=== PATIENT | female | born 1950 | race Caucasian/White ===

== ENCOUNTER 2017-11-08 13:35 | Emergency (ER) | payer MEDICARE, OTHER, SELFPAY ==
[2017-11-08 13:51] VITALS: BP 146/75; PULSE 81; RESP 18; TEMP 36.9; O2SAT 94; BMI 66.1
--- NOTE | 2017-11-08 14:22 | ED_ITS ---
HPI - Neuro Symptoms/Deficit General Chief Complaint: Neuro Symptoms/Deficit Stated Complaint: NOT FEELING WELL, BLURRY VISION Time Seen by Provider: 11/08/17 14:04 Source: patient Mode of arrival: ambulatory Limitations: no limitations History of Present Illness HPI Narrative: 67-year-old female here for evaluation of generally not feeling well. thinks that she is pale. States that she woke up this morning at [address] States that she forgot to take her blood pressure medicine yesterday. She states that when she woke up she had blurry vision in her right eye. She describes it as just not as sharp as what it normally is. Denies any other symptoms at the time. By the time my evaluation patient symptoms have resolved. She states they resolved as she was being transported back to the room from the waiting room. States she just feels ? unsteady ?on her feet. No weakness. No vertigo. Did take her blood pressure medicine this morning. Patient states that the blurry vision in her right eye was just in her right eye. She states that she covered her right I could see normally out of her left eye. On Anticoagulants: No Related Data Home Medications Medication Instructions Recorded Confirmed Co Q-10 1 cap PO DAILY 11/08/17 11/08/17 Fish Oil 1 cap PO DAILY 11/08/17 11/08/17 Mature Multi-Vitamin 1 tab PO DAILY 11/08/17 11/08/17 atorvastatin 1 tab PO DAILY 11/08/17 11/08/17 cetirizine [Aller-Mary] 1 tab PO DAILY 11/08/17 11/08/17 cholecalciferol (vitamin D3) 5,000 unit PO DAILY 11/08/17 11/08/17 [Vitamin D3] clonidine HCl 1 tab PO BID 11/08/17 11/08/17 furosemide 40 mg PO DAILY 11/08/17 11/08/17 glipizide 5 mg PO BID 11/08/17 11/08/17 levothyroxine 50 mcg PO DAILY 11/08/17 11/08/17 lisinopril 10 mg PO DAILY 11/08/17 11/08/17 metoprolol succinate 100 mg PO DAILY 11/08/17 11/08/17 potassium chloride 10 meq PO DAILY 11/08/17 11/08/17 Allergies Allergy/AdvReac Type Severity Reaction Status Date / Time aspirin AdvReac Verified 11/08/17 13:57 codeine AdvReac Verified 11/08/17 13:57 Review of Systems Constitutional Denies chills, Reports fatigue, Denies fever(s), Denies headache(s), Reports lethargy and Denies weakness Eyes Reports loss of vision (Blurry vision right eye) Comments: Blurry vision right eye Left eye no symptoms ENT Ears, Nose, Mouth, and Throat: Denies dental pain, Denies dysphagia, Denies vertigo, Denies dizziness, Denies dry mouth, Denies facial pain, Denies headache (s), Reports disequilibrium, Denies tinnitus, Denies sinus pressure and Denies sore throat Cardiovascular Denies chest pain, Denies irregular heart rhythm, Reports lightheadedness, Denies palpitations, Denies dyspnea, Denies dyspnea on exertion and Denies orthopnea Respiratory Denies cough, Denies dyspnea, Denies dyspnea on exertion and Denies wheezing Gastrointestinal Gastrointestinal: Denies dysphagia Genitourinary Denies dysuria Musculoskeletal Denies myalgias, Denies arthralgias, Denies numbness and Denies tingling Integumentary/Breasts Denies lesions and Denies rash Neurologic Denies abnormal movements, Denies abnormal speech, Denies behavioral changes, Denies burning sensations, Denies confusion, Denies vertigo, Denies dizziness, Denies headache(s), Denies focal weakness, Reports loss of vision (Blurry vision right eye), Denies memory loss, Denies numbness, Denies radicular pain, Denies sensory deficit, Denies tingling, Denies paresthesias, Reports disequilibrium and Denies weakness Psychiatric Denies behavioral changes, Denies confusion and Denies memory loss Endocrine Reports fatigue and Denies palpitations Hematologic/Lymphatic Denies easy bruising Allergic/Immunologic Denies wheezing PFSH Social History Smoking Status: Never smoker Exam Initial Vital Signs Initial Vital Signs: Vital Signs Temperature 98.5 F 11/08/17 13:51 Pulse Rate 81 11/08/17 13:51 Respiratory Rate 18 11/08/17 13:51 Blood Pressure 146/75 H 11/08/17 13:51 Pulse Oximetry 94 11/08/17 13:51 HENWI Head: normocephalic and atraumatic Ears: external ears normal and TM's normal bilaterally Nose: external nose normal and No nasal discharge Face and sinus: sinuses nontender, face symmetric, no sinus tenderness and No dry mucous membranes Mouth: oral mucosae normal and moist mucous membranes Teeth and gingiva: dentition normal Throat: tonsils normal and uvula midline Eyes EOM: No nystagmus Resp Effort & Inspection: normal respiratory effort, able to speak in complete sentences, no respiratory distress and no use of accessory muscles Auscultation: clear to auscultation bilaterally, no rales, no rhonchi and no wheezes Cardio Rate: regular rate Rhythm: regular rhythm Heart Sounds: no click, no gallops, no murmurs and no rubs Pulses: normal peripheral pulses GI Inspection: non-distended Palpation: soft, no hepatosplenomegaly, No guarding, No pulsatile mass and No tender Auscultation: normal bowel sounds Skin General: no rashes or lesions noted, No jaundice and No petechiae Neuro General: alert, awake, oriented x3 and CN's II-XI intact bilaterally Cranial Nerves: CN's II-XI intact bilaterally, PERRL, facial strength normal, tongue midline and No nystagmus Cognition: normal cognition Speech: speech normal Gait: normal gait and not ataxic Motor: muscle tone normal throughout Sensory Exam: no sensory deficits noted Extrem General: normal to inspection, full ROM, no clubbing, cyanosis or edema, no pedal edema and no calf tenderness Course Orders Ordered: ED Orders 11/08/17 14:45 B Type Natriuretic Peptide Stat Complete Blood Count AUTO DIFF Stat Comprehensive Metabolic Panel Stat Lipase Stat Vital Signs - 8 hr 11/08/17 13:51 11/08/17 14:35 11/08/17 15:13 Temperature 98.5 F Pulse Rate 81 77 71 Respiratory Rate 18 18 Blood Pressure 146/75 H Blood Pressure [Left Arm] 125/61 H 165/77 H Pulse Oximetry 94 94 95 MDM - Neuro Symptoms/Deficit Lab Data Attestation: I reviewed the patient's lab results. Result diagrams: 11/08/17 14:45 11/08/17 14:45 Lab Results 11/08/17 11/08/17 11/08/17 Range/Units 14:45 14:45 14:45 WBC 7.5 (4.5-11.0) X10^3/uL RBC 4.55 (4.0-5.2) X10^6/uL Hgb 14.3 (12.0-16.0) g/dL Hct 43.1 (36-46) % MCV 94.5 (80-100) fL MCH 31.5 (26-34) PG MCHC 33.3 (30-36) % RDW 14.6 (11.6-14.8) % Plt Count 218 (150-400) X10^3/uL Neut % (Auto) 75.7 H (50-75) % Lymph % (Auto) 18.5 L (25-40) % Stearns % (Auto) 3.7 (3-14) % Eos % (Auto) 1.0 L (2-4) % Baso % (Auto) 1.1 (0-2) % Neut # (Auto) 5700 (2523-0479) /uL Sodium 136 L (137-145) mmol/L Potassium 5.0 (3.4-5.1) mmol/L Chloride 94 L (98-107) mmol/L Carbon Dioxide 29 (22-32) mmol/L BUN 36 H (7-17) mg/dL Creatinine 1.50 H (0.52-1.04) mg/dL Estimated GFR 34.7 L (>60) mL/min BUN/Creatinine Ratio 24.0 H (6-22) Glucose 335 H (80-110) mg/dL Calcium 10.1 (8.4-10.2) mg/dL Total Bilirubin 0.7 (0.2-1.3) mg/dL AST 31 (14-36) IU/L ALT 27 (9-52) IU/L Alkaline Phosphatase 110 (38-126) U/L B-Natriuretic Peptide 207.0 H (<100) Total Protein 7.8 (6.3-8.2) g/dL Albumin 4.2 (3.5-5.0) g/dL Globulin 3.6 (1.7-4.1) g/dL Albumin/Globulin Ratio 1.2 (1.0-2.8) Lipase 237 (23-300) U/L ECG Data Attestation: I personally reviewed and interpreted this ECG as follows: Prior ECG tracings: available for review Interpretation: EKG dated 08 November 2017 time 1519 hr Sinus rhythm First degree AV block Normal axis Normal QRS Normal QTC No ST T wave changes Comparison EKG dated 05/19/2017 Unchanged from today's EKG MDM Narrative Medical decision making narrative: At the time of my evaluation patient was symptom free. Did ambulate to the bathroom without any problems. Was hypertensive however patient has a history of hypertension and did skip her medication yesterday. Was also hyperglycemic. She is not on insulin. She does not take her blood sugars at home. Her labs are not consistent with DKA. Patient with normal neurologic exam today. Will hold on head CT as I feel that tumor/bleed/CVA is unlikely. Her symptoms are also not consistent with a TIA. We did discuss the use of home aspirin. We did discuss return precautions. Informed her that she needed to contact her primary doctor for further evaluation workup. was at bedside for this discussion. They both expressed understanding and agreement with plan Discharge Plan Departure Patient Disposition: Home, Self-Care Clinical Impression: Blurred vision, right eye Instructions: Preventive Cardiology: Aspirin Activity Restrictions/Additional Instructions: Recommend that you continue all of your home medications. I do recommend that you take your blood pressure and blood sugar at home like we discussed. Call your primary doctor for a follow-up. Return to the emergency department for any new or worsening symptoms Prescriptions: No Action furosemide 40 mg tablet 40 mg PO DAILY RF: 0 clonidine HCl 0.1 mg tablet 1 tab PO BID RF: 0 atorvastatin 20 mg tablet 1 tab PO DAILY RF: 0 metoprolol succinate 100 mg tablet extended release 24 hr 100 mg PO DAILY RF: 0 potassium chloride 10 mEq tablet extended release 10 meq PO DAILY RF: 0 levothyroxine 50 mcg tablet 50 mcg PO DAILY RF: 0 lisinopril 10 mg tablet 10 mg PO DAILY RF: 0 glipizide 5 mg tablet 5 mg PO BID RF: 0 cetirizine [Aller-Mary] 10 mg Tablet 1 tab PO DAILY RF: 0 cholecalciferol (vitamin D3) [Vitamin D3] 5,000 unit Tablet 5,000 unit PO DAILY RF: 0 Co Q-10 1 cap PO DAILY RF: 0 Fish Oil 1,200 mg capsule 1 cap PO DAILY RF: 0 Mature Multi-Vitamin tablet 1 tab PO DAILY RF: 0
[2017-11-08 14:35] VITALS: BP 125/61; PULSE 77; O2SAT 94
[2017-11-08 14:56] LABS: Add Manual Diff / Slide Review NO; Basophils Percent Auto 1.1 % (0-2); Hematocrit 43.1 % (36-46); Hemoglobin 14.3 g/dL (12.0-16.0); Lymphocytes Percent Auto 18.5 % (25-40); Mean Corpuscular HGB Conc 33.3 % (30-36); Mean Corpuscular Hemoglobin 31.5 PG (26-34); Mean Corpuscular Volume 94.5 fL (80-100); Monocytes Percent Auto 3.7 % (3-14); Neutrophils Absolute Auto 5700 /uL (3000-5900); Neutrophils Percent Auto 75.7 % (50-75); Platelet Count 218 X10^3/uL (150-400); Red Blood Cell Count 4.55 X10^6/uL (4.0-5.2); Red Cell Distribution Width 14.6 % (11.6-14.8); White Blood Cell Count 7.5 X10^3/uL (4.5-11.0)
[2017-11-08 15:08] LABS: Alanine Aminotransferase 27 IU/L (9-52); Albumin 4.2 g/dL (3.5-5.0); Albumin Globulin Ratio 1.2 (1.0-2.8); Alkaline Phosphatase 110 U/L (38-126); Aspartate Aminotransferase 31 IU/L (14-36); Bilirubin Total 0.7 mg/dL (0.2-1.3); Blood Urea Nitrogen 36 mg/dL (7-17); Calcium 10.1 mg/dL (8.4-10.2); Carbon Dioxide 29 mmol/L (22-32); Chloride 94 mmol/L (98-107); Estimated Glomerular Filt Rate 34.7 mL/min (>60); Globulin 3.6 g/dL (1.7-4.1); Glucose 335 mg/dL (80-110); HEMOLYSIS 16 (0-50); Lipase 237 U/L (23-300); Sodium 136 mmol/L (137-145); Total Protein 7.8 g/dL (6.3-8.2)
--- NOTE | 2017-11-08 15:08 | PC.NURSE ---
Pt states she was having blurred vision and mild headache this morning at 0300. Reports she forgot to take her blood pressure medicine the night before. Took the meds and then went back to bed for 5 hours. Awoke with continued blurred vision and just not feeling right. States feeling a little off balance. At this time in the ED, she denies nausea, headache. She is not wearing her glasses, so she cannot tell me whether she still has blurred vision, but states it is better than this am. FAST exam negative.
[2017-11-08 15:13] VITALS: BP 165/77; PULSE 71; RESP 18; O2SAT 95
[2017-11-08 15:45] VITALS: BP 154/65; PULSE 78; RESP 19; O2SAT 94
== END 2017-11-08 16:21 | disposition home or self-care (01) ==
PROVIDERS: Emergency Provider Emergency Medicine
DX: H53.8 Other visual disturbances (principal)
CPT/HCPCS: 36591; 80053; 83690; 83880; 85025; 93041; 99283; 99284; 99291